=== PATIENT | female | born 1965 | race Caucasian/White ===

== ENCOUNTER → 2020-11-22 | Outpatient (CLI) | payer BC | LOC: KOH-I 13:52 | DX: M72.2 Plantar fascial fibromatosis (principal); M79.671 Pain in right foot | CPT/HCPCS: 73630; 73650 ==

== ENCOUNTER → 2021-06-20 | Outpatient (CLI) | payer BC | LOC: ECHO 09:38 | DX: R07.89 Other chest pain (principal); F50.2 Bulimia nervosa; R53.81 Other malaise; E46 Unspecified protein-calorie malnutrition | CPT/HCPCS: ECHO; 93306 ==